=== PATIENT | male | born 1970 | race Caucasian/White ===

== ENCOUNTER 2024-10-14 09:24 | Emergency (ER) | payer OTHER, SELFPAY ==
--- OUTSIDE RECORDS SUMMARY | 2020-10-26 07:02 | XMS_ITS | Continuity of Care Document ---
Author Organization [facility] Address [address] [address] [place] [address] Phone Care Team Providers Care Senior Oracle Adf Developer Name Role Phone Darryl Kebede DO Unavailable Unavailab le Advance Directives Directive Yes / No Effective Date File Name No Information Encounters Encounter Description Practice Location Reason(s) For Visit Diagnoses Date Provider Providers Copied on Encounter [facility], [address] [address], [place], [id number], [place] tel:[phone] [place] No Information Delio Senior. [address] [facility] [address], [place], [address], [place]. tel:[phone] Family History Family Member Type Diagnosis Age At Onset No Information Payers Payer name Insurance type Covered republican ID Authoriza tion(s) No Information Social History Type Description Quantity Date Captured Comments Sex Male Smoking Status No Information Chief Complaint And Reason For Visit No Information Reason For Referral Reason For Referral No Information History Of Present Illness Encounter Date Complaint History Of Prese nt Illness No Information Functional Status Date Functional Assessmen t No Information Instructions Date Instruction Additional Infor mation No Information Assessments Type Assessment Date No Information Patient Care Teams Name Effective Dates (start - stop) Status Members No Information
[2024-10-14] VITALS (64 sets, daily range): BP systolic 114–186; BP diastolic 64–111; PULSE 57–86; TEMP 36.4; O2SAT 93–100; BMI 33.7
--- NOTE | 2024-10-14 09:28 | XR_ITS ---
[facility] [place] [id number] Patient Name: MASSIEL FULLER MRN: [id number] date: 1970 Sex: M Assigned Patient Location: ED.MAIN Current Patient Location: ED.MAIN Accession/Order Number: [id number] Exam Date: 10/14/2024 10:00 Report Date: 10/14/2024 10:01 At the request of: JOHNNIE BENOIT MD Procedure: XR chest 1V PORTABLE AP ERECT CHEST 0923 hours CLINICAL HISTORY: Chest pain and pressure. COMPARISON: None The heart is within normal limits. There is no vascular congestion. The lungs, as visualized, are clear. There is no effusion or pneumothorax. The osseous structures are intact. XR/XR chest 1V IMPRESSION: NO ACUTE FINDINGS Impression dictated by: Yara Helm M.D. 10/14/2024 10:01 AM Dictation Location: [place] [address] Electronically authenticated by: [id number] Y Date: 10/14/2024 10:01
--- NOTE | 2024-10-14 09:31 | ED_ITS ---
HPI HPI - General Adult General Chief complaint: Chest Pain Stated complaint: CHEST PAINS Time Seen by Provider: 10/14/24 09:28 Source: patient Mode of arrival: walk-in Limitations: no limitations History of Present Illness HPI narrative: 54-year-old male presents to the emergency department for chest pain. It started 20 minutes ago while he was sitting down eating breakfast. It feels l janie a vice is squeezing his chest. He has been having episodes similar to this over the past 4 days but this 1 is the worst. No fever or trauma. He has no personal history of heart disease. 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 The pain has been continuous. Related Data Home Medications ?Medication ?Instructions ?Recorded ?Confirmed apixaban 5 mg tablet (Eliquis) 5 mg PO BID 10/14/24 Allergies Allergy/AdvReac Type Severity Reaction Status Date / Time morphine AdvReac Mild Nausea Verified 10/14/24 09:30 Review of Systems ROS Narrative A ten point review of systems is negative except as noted above. PFSH PFSH Social History Little interest or pleasure in doing things: not at all Feeling down, depressed, or hopeless: not at all Exam Narrative Exam Narrative: Nurses note and vital signs reviewed and patient is not hypoxic. General: The patient appears no apparent respiratory distress. Patient appears uncomfortable. Skin: Warm, mildly diaphoretic, no pallor noted. There is no rash noted. Head: Normocephalic, atraumatic Eye: Normal conjunctiva, no drainage Ears, Nose, Mouth, and Throat: oral mucosa is moist. Nares patent. Cardiovascular: Regular Rate and Rhythm, not tachycardic Respiratory: Patient is in no distress, no accessory muscle use, lungs are clear to auscultation, no wheezing, rales or rhonchi Back: non-tender GI: Soft and nontender Musculoskeletal: The patient has no evidence of calf tenderness, no pitting edema, symmetrical pulses noted bilaterally Neurological: A&O, normal speech Psychiatric: Cooperative Constitutional Vital Signs, click to edit/add: Last Vital Signs Temp 97.6 F 10/14/24 09:27 Pulse 65 10/14/24 11:30 Resp 18 10/14/24 11:30 BP 148/89 H 10/14/24 11:30 Pulse Ox 99 10/14/24 11:30 O2 Del Method Room Air 10/14/24 09:27 Course Vital Signs Vital signs: Vital Signs Pulse Rate 86 10/14/24 09:26 Respiratory Rate 24 H 10/14/24 09:26 Pulse Oximetry 98 10/14/24 09:26 Temperature 97.6 F 10/14/24 09:27 Pulse Rate 65 10/14/24 11:30 Respiratory Rate 18 10/14/24 11:30 Blood Pressure 148/89 H 10/14/24 11:30 Pulse Oximetry 99 10/14/24 11:30 Oxygen Delivery Method Room Air 10/14/24 09:27 Medical Decision Making MDM Narrative Medical decision making narrative: EKG shows no acute findings. He has had recurrent pain here in the emergency department and was given nitroglycerin. Initial troponin was 55 and the repeat is 73. He is trending upwards. He will not be given heparin because he is on Eliquis and has a dural venous sinus thrombosis. Case discussed with Dr. Chapman, small products ii assembler at [facility]. The patient will be transferred there for appropriate care. Treatment diagnosis and disposition were discussed with the patient and his family. Differential Diagnosis Differential Diagnosis: STEMI, NSTEMI, chest pain, unstable angina Lab Data Lab results reviewed: Yes I reviewed the patient's lab results Labs: Lab Results 10/14/24 10/14/24 Range/Units 09:30 10:47 WBC 6.3 (4.0-11.0) 10^3/uL RBC 5.49 (4.70-6.10) 10^6/uL Hgb 16.7 (14.0-18.0) g/dL Hct 49.3 (42.0-54.0) % MCV 89.8 (80.0-94.0) fL MCH 30.4 (25.9-34.0) pg MCHC 33.9 (29.9-35.2) g/dL RDW 13.0 (11.0-15.0) % Plt Count 275 (150-450) 10^3/uL MPV 10.2 (9.5-13.5) fL Neut % (Auto) 59.1 (43.0-75.0) % Lymph % (Auto) 28.4 (20.5-60.0) % [place] % (Auto) 6.9 (1.7-12.0) % Eos % (Auto) 4.3 (0.9-7.0) % Baso % (Auto) 1.0 (0.2-2.0) % Neut # (Auto) 3.7 (1.4-6.5) 10^3/uL Lymph # (Auto) 1.8 (1.2-3.8) 10^3/uL [place] # (Auto) 0.4 (0.3-0.8) 10^3/uL Eos # (Auto) 0.3 (0.0-0.7) 10^3/uL Baso # (Auto) 0.1 (0.0-0.1) 10^3/uL Abs Immat Gran (auto) 0.02 (0.00-0.03) 10^3/uL Imm/Tot Granulo (auto) 0.3 (0.0-0.5) % Sodium 141 (136-145) mmol/L Potassium 3.8 (3.5-5.1) mmol/L Chloride 103 (98-107) mmol/L Carbon Dioxide 27.0 (21.0-32.0) mmol/L Anion Gap 14.8 BUN 11.0 (7.0-18.0) mg/dL Creatinine 1.07 (0.70-1.30) mg/dL Est GFR ( Amer) >60 (>=60 mL/min/1.73m^2) Est GFR (Non-Af Amer) >60 (>=60 mL/min/1.73m^2) BUN/Creatinine Ratio 10.3 Glucose 162 H (74-106) mg/dL Calcium 9.8 (8.5-10.1) mg/dL Troponin I High Sens 55.4 73.4 (4.0-76.1) pg/mL Imaging Data Chest x-ray: Radiologist's impression: ITS Impressions Chest X-Ray 10/14/24 09:28 IMPRESSION: NO ACUTE FINDINGS Impression dictated by: Yara Helm M.D. 10/14/2024 10:01 AM Dictation Location: [place] [address] Electronically authenticated by: [id number] Y Date: 10/14/2024 10:01 ECG Data Attestation: I personally reviewed and interpreted this ECG as follows: (EKG on my interpretation shows normal sinus rhythm with rate of 75 and no acute change) Discharge Plan Discharge Chief Complaint: Chest Pain Clinical Impression: Chest pain Patient Disposition: General Acute Hospital Time of Disposition Decision: 12:01 Discharge Location: [facility] Condition: [place] Mode of Transportation: EMS
[2024-10-14] MEDS: ASPIRIN 81 MG TAB.CHEW 324 MG PO (09:33)
[2024-10-14] MEDS: NITROGLYCERIN 0.4 MG BOTTLE SL ×2 (09:33→11:50)
[2024-10-14 09:42] LABS: Basophils Absolute Auto 0.1 10^3/uL (0.0-0.1); Eosinophils Absolute Auto 0.3 10^3/uL (0.0-0.7); Eosinophils Percent Auto 4.3 % (0.9-7.0); Hematocrit 49.3 % (42.0-54.0); Hemoglobin 16.7 g/dL (14.0-18.0); Immature Granulocytes Abs Auto 0.02 10^3/uL (0.00-0.03); Immature Granulocytes Pct Auto 0.3 % (0.0-0.5); Lymphocytes Absolute Auto 1.8 10^3/uL (1.2-3.8); Lymphocytes Percent Auto 28.4 % (20.5-60.0); Mean Corpuscular HGB Conc 33.9 g/dL (29.9-35.2); Mean Corpuscular Hemoglobin 30.4 pg (25.9-34.0); Mean Corpuscular Volume 89.8 fL (80.0-94.0); Mean Platelet Volume 10.2 fL (9.5-13.5); Monocytes Absolute Auto 0.4 10^3/uL (0.3-0.8); Monocytes Percent Auto 6.9 % (1.7-12.0); Neutrophils Absolute Auto 3.7 10^3/uL (1.4-6.5); Neutrophils Percent Auto 59.1 % (43.0-75.0); Platelet Count 275 10^3/uL (150-450); Red Blood Count 5.49 10^6/uL (4.70-6.10); White Blood Count 6.3 10^3/uL (4.0-11.0)
[2024-10-14 10:06] LABS: Anion Gap 14.8; BUN Creatinine Ratio 10.3; Calcium 9.8 mg/dL (8.5-10.1); Chloride 103 mmol/L (98-107); Estimated GFR (African America >60 (>=60 mL/min/1.73m^2); Estimated GFR (Non-African Ame >60 (>=60 mL/min/1.73m^2); Glucose 162 mg/dL (74-106); Potassium 3.8 mmol/L (3.5-5.1); Sodium 141 mmol/L (136-145)
[2024-10-14 10:09] LABS: Troponin I High Sensitivity 55.4 pg/mL (4.0-76.1)
--- NOTE | 2024-10-14 10:48 | PC.NURSE ---
This nurse assumed care for patient This nurse spent extended amount of time with patient discussing troponin and results Pt states he has zero chest pain at this time - that he can feel where it was but it is no longer painful Pt states he is under a lot of stress in life at this time this nurse discussed troponin redraw at this time lab then entered and musa Pt denies needs at this time and is aware of care plan
[2024-10-14 11:14] LABS: Troponin I High Sensitivity 73.4 pg/mL (4.0-76.1)
--- NOTE | 2024-10-14 12:00 | PC.NURSE ---
Pt given a second dose of SL nitro as he stated the chest pain was coming back Pt immediately began to feel very hot and described it as feeling uncomfortable This nurse lyed patient back in bed and placed a cool rag on his head Pt then began to feel better spoke to patient and his along with this nurse and told him the plan to transfer him to [facility] for cardiology services Pt and family questions were answered Pt verbalized understanding and denied further needs or questions at this time
[2024-10-14 13:03] LABS: Troponin I High Sensitivity 101.7 pg/mL (4.0-76.1)
--- NOTE | 2024-10-14 13:47 | PC.NURSE ---
Pt reports to this nurse that at this moment he feels well and feels trapped in the bed Pt states he is a very active person and sitting still is difficult for him Pt states when he walked to the bathroom he immediately began feeling the pressure in his chest again Pt states when he returned to bed this lessened
== END 2024-10-14 18:12 | disposition short-term general hospital (02) ==
PROVIDERS: Emergency Provider Emergency Medicine
DX: I21.4 Non-ST elevation (NSTEMI) myocardial infarction (principal); Z79.01 Long term (current) use of anticoagulants; G08 Intracranial and intraspinal phlebitis and thrombophlebitis; R07.9 Chest pain, unspecified
CPT/HCPCS: 36415; 71045; 80048; 84484; 85025; 93005; 99285